=== PATIENT | male | born 1960 | race Caucasian/White ===

== ENCOUNTER → 2016-10-12 | Outpatient (REF) | payer OTHER ==
[2016-10-12 19:10] LABS: COMPLEMENT C4 22.8 MG/DL (10-40)
== END ==
LOC: M LAB REF 16:58
PROVIDERS: ATTEND Internal Medicine Nephrology
DX: R80.9 Proteinuria, unspecified (principal)

== ENCOUNTER → 2016-10-17 | Outpatient (CLI) | payer OTHER ==
--- NOTE | 2016-10-17 15:25 | REP ---
URINARY TRACT SONOGRAPHY: HISTORY: Chronic kidney disease stage III. FINDINGS: Scanning at the level of the urinary bladder shows no abnormality. Renal cortical echogenicity pattern is not increased on either side. There is no evidence of mass cyst hydronephrosis or calculus on either side. The right kidney measures 11.8 x 5.7 x 5.2 cm. Left renal dimensions are 11.9 x 6.3 x 6.1 cm. IMPRESSION: No abnormality noted. Signed by Cheko Tate MD 10/17/2016 04:47 P
== END ==
LOC: M RAD 10:03
PROVIDERS: ATTEND Internal Medicine Nephrology
DX: N18.3 Chronic kidney disease, stage 3 (moderate) (principal)

== ENCOUNTER → 2017-08-18 | Outpatient (REF) | payer OTHER | LOC: M LAB REF 13:39 | PROVIDERS: ATTEND Nurse Practitioner Family | DX: R53.83 Other fatigue (principal) ==

== ENCOUNTER → 2019-08-14 | Outpatient (CLI) | payer OTHER ==
--- NOTE | 2019-08-14 08:01 | REP ---
Clinical: Right upper quadrant pain. Technique: Real time patino scale ultrasound examination using curved array transducer. Findings: The liver is diffusely echogenic with poor through transmission suggesting fatty infiltration. No focal hepatic lesion identified. The pancreas is incompletely evaluated but visualized portions appear normal. The gallbladder is unremarkable and without gallstones, wall thickening, or pericholecystic fluid. No biliary ductal dilatation is appreciated and the common bile duct measures 4.3 mm diameter. The right kidney is normal in reniform shape without hydronephrosis and measures 11.1 x 5.6 x 6.0 cm with suggestions for partial duplication to the collecting system. No ascites in the visualized right upper quadrant. Impression: 1. Hepatic steatosis. No focal hepatic lesion identified. 2. 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 Electronically Signed by Wood Miranda MD 08/14/2019 07:53 A
== END ==
LOC: M RAD 07:00
PROVIDERS: ATTEND Internal Medicine Gastroenterology
DX: K76.0 Fatty (change of) liver, not elsewhere classified (principal)

== ENCOUNTER → 2019-08-21 | Outpatient (REF) | payer OTHER | LOC: M LAB REF 19:11 | PROVIDERS: ATTEND Ophthalmology | DX: L82.1 Other seborrheic keratosis (principal) ==

== ENCOUNTER 2019-09-02 10:05 | Day surgery (SDC) | payer OTHER ==
[~2019-09-02] VITALS: Ht 177.8 cm; Wt 104.3 kg
[~2019-09-02 10:05] MED LIST: BASA100I SC; LOSA100T50 PO; NS 1,000 ML IV ONE; PROPOFOL 200 MG/20 ML VIAL As Ordered ONE; SIMV20TA22 PO; TRUL0.5I SC
--- NOTE | 2019-09-02 11:33 | ROOR ---
Patient Name: Carl Del Rosario Procedure Date: 09/02/2019 11:14 AM Date of : 1960 Age: 59 Room: [facility] Gender: Male Note Status: Finalized Procedure: Total Colonoscopy to Cecum Indications: Screening for colorectal malignant neoplasm Providers: Tank Palacios MD Referring MD: Clarissa Barragan NP Requesting Provider: Medicines: Monitored Anesthesia Care Complications: No immediate complications. Procedure: Pre-Anesthesia Assessment: - The heart rate, respiratory rate, oxygen saturations, blood pressure, adequacy of pulmonary ventilation, and response to care were monitored throughout the procedure. The Colonoscope was introduced through the anus and advanced to the cecum, identified by appendiceal orifice and ileocecal valve. The colonoscopy was performed without difficulty. The patient tolerated the procedure well. The quality of the bowel preparation was excellent. Findings: The perianal and digital rectal examinations were normal. Non-bleeding internal hemorrhoids were found during retroflexion. The hemorrhoids were small and Grade I (internal hemorrhoids that do not prolapse). Scattered small-mouthed diverticula were found in the recto-sigmoid colon, sigmoid colon and descending colon. The exam was otherwise without abnormality on direct and retroflexion views. Impression: - Non-bleeding internal hemorrhoids. - Diverticulosis in the recto-sigmoid colon, in the sigmoid colon and in the descending colon. - The examination was otherwise normal on direct and retroflexion views. - No specimens collected. - The exam was otherwise normal to the cecum. Recommendation: - Patient has a contact number available for emergencies. The signs and symptoms of potential delayed complications were discussed with the patient. Return to normal activities tomorrow. Written discharge instructions were provided to the patient. - High fiber diet. - Discharge patient to home. - Continue present medications. - Repeat colonoscopy in 10 years for screening purposes. - Return to referring physician. - The findings and recommendations were discussed with the patient's family. Tank Palacios MD Tank Palacios MD 09/02/2019 11:32:36 AM Electronically signed by Tank Palacios MD Number of Addenda: 0 Note Initiated On: 09/02/2019 11:14 AM Estimated Blood Loss: Estimated blood loss: none.
[2019-09-02 12:00] VITALS: BP 165/90
== END 2019-09-02 12:00 | disposition home or self-care (01) ==
LOC: M OPP 10:05
PROVIDERS: ATTEND Internal Medicine Gastroenterology
DX: Z12.11 Encounter for screening for malignant neoplasm of colon (principal); K64.0 First degree hemorrhoids; K57.30 Diverticulosis of large intestine without perforation or abscess without bleeding; I10 Essential (primary) hypertension; E78.00 Pure hypercholesterolemia, unspecified; Z79.899 Other long term (current) drug therapy

== ENCOUNTER → 2020-12-29 | Outpatient (REF) | payer MEDICARE ==
[~2020-12-29] MED LIST changes: -NS 1,000 ML IV ONE; -PROPOFOL 200 MG/20 ML VIAL As Ordered ONE
== END ==
LOC: M LAB REF 16:25
PROVIDERS: ATTEND Nurse Practitioner Adult Health
DX: Z20.822 Contact with and (suspected) exposure to COVID-19 (principal); Z86.16 Personal history of COVID-19

== ENCOUNTER → 2021-04-29 | Outpatient (REF) | payer MEDICARE, OTHER | LOC: M LAB REF 17:21 | PROVIDERS: ATTEND Internal Medicine Nephrology | DX: E83.42 Hypomagnesemia (principal) ==

== ENCOUNTER → 2022-07-12 | Outpatient (CLI) | payer MEDICARE, OTHER ==
[~2022-07-12] MED LIST changes: +LOSA100T45 PO; -LOSA100T50 PO
== END ==
LOC: M WUC 11:16
PROVIDERS: ATTEND Nurse Practitioner Adult Health
DX: M25.551 Pain in right hip (principal); M25.552 Pain in left hip

== ENCOUNTER → 2024-08-21 | Day surgery (SDC) | payer MEDICARE ==
[~2024-08-21] VITALS: Ht 177.8 cm; Wt 101.2 kg
[~2024-08-21] MED LIST changes: +CO Q50CA7 PO; +FARX1TAB3 PO; +GRAVIOLA PO; -LOSA100T45 PO; +LOSA100T46 PO; +POTA99CA2 PO; +RA T500C2 PO; +THERTAB52 PO; +VITA100024 PO; +ZINC50TA17 PO; +ceylon cinnamon PO
[2024-08-21 07:44] VITALS: BP 134/94; TEMP 96.9; O2SAT 96
== END | disposition home or self-care (01) ==
LOC: M OPP 07:19
PROVIDERS: ATTEND Internal Medicine Gastroenterology
DX: R19.5 Other fecal abnormalities (principal); Z53.8 Procedure and treatment not carried out for other reasons

== ENCOUNTER 2024-10-07 11:04 | Day surgery (SDC) | payer MEDICARE ==
[~2024-10-07] VITALS: Ht 177.8 cm; Wt 99.8 kg
[2024-10-07] MEDS ORDERED: CHLO125TA PO (12:21)
[2024-10-07] MEDS ORDERED: LIDOCAINE 1% MDV 20ML VIAL As Ordered ONE (12:29)
[2024-10-07] MEDS ORDERED: propofoL 200 MG/20 ML VIAL As Ordered ONE (12:29)
[2024-10-07] MEDS ORDERED: fentaNYL 100 MCG/2 ML INJECTION As Ordered ONE (12:29)
[2024-10-07 13:30] VITALS: BP 132/73; O2SAT 96
== END 2024-10-07 13:37 | disposition home or self-care (01) ==
LOC: M OPP 11:04
PROVIDERS: ATTEND Internal Medicine Gastroenterology
DX: Z12.11 Encounter for screening for malignant neoplasm of colon (principal); R19.5 Other fecal abnormalities; K57.30 Diverticulosis of large intestine without perforation or abscess without bleeding; K64.0 First degree hemorrhoids; R12 Heartburn; K22.89 Other specified disease of esophagus; Z91.048 Other nonmedicinal substance allergy status; Z79.4 Long term (current) use of insulin; Z79.899 Other long term (current) drug therapy
CPT/HCPCS: 88305; G0121; J3010

== ENCOUNTER → 2025-03-26 | Outpatient (CLI) | payer MEDICARE ==
[~2025-03-26] MED LIST changes: +CHLO125TA PO
== END ==
LOC: M WUC 11:08
PROVIDERS: ATTEND Nurse Practitioner Adult Health
DX: M25.551 Pain in right hip (principal); M54.50 Low back pain, unspecified